=== PATIENT | male | born 1985 | race Caucasian/White ===

== ENCOUNTER 2016-11-08 07:19 | Emergency (ER) ==
[2016-11-08] MEDS ORDERED: TORADOL IV ONE (07:39)
[2016-11-08] MEDS ORDERED: ZOFRAN IV ONE (07:39)
[2016-11-08] MEDS ORDERED: NS 1,000 ML IV ONE (07:39)
--- NOTE | 2016-11-08 08:15 | PROVIDER DOCUMENTATION ---
HPI-Abdominal Pain/GI Problem <Patrick Rock - Last Filed: 11/08/16 09:12> - General Source: patient - History of Present Illness-ABD Nature of Presenting Problems: Sudden onset R flank pain radiating to R testicle area since 1 hour ago [employer]. Reports h/o multiple stones in the past and he needed surgeries to remove them. Urologist is Dr. Roberto at [facility]. Denies F/C/V, but nauseated. Pt reports his R testicle is hurting, but it is radiating pain and he always has it when he passes a kidney stone. Abdominal Pain Onset Location: reports: flank (R) Pain Radiation: reports: groin (R) Quality of Pain: reports: aching, sharp Severity in ED: reports: moderate Onset/Duration: reports: abrupt, just prior to arrival Timing: reports: still present Activities at Onset: reports: none Exposure to sick contacts?: No Associated Symptoms: reports: nausea Dark Stools Present?: reports: none noticed Rectal Pain: reports: none Bruising or Bleeding Gums?: No Similar Symptoms Previously?: No <Mark Johnson - Last Filed: 11/08/16 15:33> - General Chief Complaint: Flank Pain Stated Complaint: kidney stone Time Seen by Provider: 11/08/16 07:38 Allergies/Adverse Reactions: Patient Allergies Allergy/AdvReac Type Severity Reaction Status Date / Time prochlorperazine Allergy Unknown Verified 11/08/16 08:42 [From Compazine] prochlorperazine edisylate * Allergy Unknown Verified 11/08/16 08:42 [From Compazine] prochlorperazine maleate * Allergy Unknown Verified 11/08/16 08:42 [From Compazine] Home Medications: Home Medication List Medication Instructions Recorded Confirmed Last Taken Type Ciprofloxacin HCl [Cipro] 500 mg PO BID #20 tablet 11/08/16 Unknown Rx Hydrocodone/APAP 10 mg/325 mg 1 each PO Q8H PRN PRN #15 tablet 11/08/16 Unknown Rx [[place]-10] Ondansetron Odt [Zofran 8Mg Odt] 8 mg PO Q8H PRN PRN #10 tablet 11/08/16 Unknown Rx Tamsulosin [Flomax] 0.4 mg PO DAILY #30 capsule 11/08/16 Unknown Rx Review of Systems - Adult - REVIEW OF SYSTEMS - ADULT ROS:: unobtainable per condition Constitutional: reports: no symptoms reported, see HPI Eyes: denies: no symptoms reported Ears, Nose, Mouth & Throat: reports: no symptoms reported Cardiovascular: reports: no symptoms reported Respiratory: reports: no symptoms reported Gastrointestinal: reports: see HPI, abdominal pain, nausea. denies: vomiting Genitourinary: reports: no symptoms reported, see HPI, flank pain. denies: dysuria, discharge, hematuria, hesitency, urinary retention, urgency Musculoskeletal: reports: no symptoms reported Integumentary: reports: no symptoms reported Neurological: reports: no symptoms reported Endocrine: reports: no symptoms reported All Other Systems: Reviewed and Negative <Mark Johnson X - Last Filed: 11/08/16 15:33> Past History - Adult - PAST MEDICAL HISTORY-ADULT Review of Records: reports: Old Records Reviewed, Nursing Assessment Review, Medications Reviewed, Social history reviewed & non-contributory. <Mark Johnson X - Last Filed: 11/08/16 15:33> Physical Exam-General - PHYSICAL EXAM-ADULT Initial Vital Signs Reviewed: Yes - CONSTITUTIONAL General Appearance: appears well, alert, no apparent distress - EYES Eyes: PERRL/EOMI, pink conjunctivae - HEAD, EARS, NOSE, MOUTH & THROAT HENMT: normocephalic/atraumatic, moist mucous membranes - NECK Neck: non-tender, full range of motion - RESPIRATORY Respiratory: chest non-tender, lungs clear, normal breath sounds - CARDIOVASCULAR Cardiovascular: normal peripheral pulses, regular rate, rhythm, no edema - GASTROINTESTINAL (ABDOMEN) Abdominal Exam: normal bowel sounds, soft, no organomegaly, tenderness (R flank tenderness, no guarding and no rebound.). negative: rebound - GENITOURINARY Male Genitalia: no hernia, circumcised. negative: hernia mass, inguinal lymphadenopathy, scrotal swelling, inguinal tenderness, testicular tenderness - MUSCULOSKELETAL Back Exam: normal inspection, no CVA tenderness, no vertebral tenderness, CVA tenderness (On R side) Extremity: normal range of motion - SKIN Integumentary: normal color, normal turgor, warm/dry - PSYCHIATRIC Psych/Mental Status: normal mood/affect, normal thought content, normal thought process, oriented x 3 <Mark Johnson X - Last Filed: 11/08/16 15:33> Progress - PLAN OF CARE/RESULTS Progress/Plan/Lab Results: Orders Category Date Time Status Saline Loc DIRECTED Care 11/08/16 07:39 Active NPO Diet 11/08/16 07:39 Active RENAL STONE SEARCH [CT] Stat Exams 11/08/16 07:39 Draft AMYLASE [CHEM] Stat Lab 11/08/16 07:52 Completed CBC WITH ELECTRONIC DIFF [HEME] Stat Lab 11/08/16 07:52 Completed COMPREHENSIVE METABOLIC PANEL [CHEM] Stat Lab 11/08/16 07:52 Completed LIPASE [CHEM] Stat Lab 11/08/16 07:52 Completed URINALYSIS W/POSS RFLX CULT [URINALYSIS] Stat Lab 11/08/16 08:50 Completed 0.9% Sodium Chloride Inj [Ns] 1,000 ml Med 11/08/16 07:39 Discontinued IV 999 mls/hr Ketorolac [Toradol] Med 11/08/16 07:39 Discontinued 30 mg IV NOW ONE Ondansetron [Zofran] Med 11/08/16 07:39 Discontinued 4 mg IV NOW ONE Laboratory Tests 11/08/16 11/08/16 11/08/16 07:52 07:52 08:50 WBC 7.30 RBC 5.07 Hgb 15.5 Hct 44.5 MCV 87.8 MCH 30.6 MCHC 34.8 RDW Std Deviation 12.9 Plt Count 253 MPV 10.2 Immature Gran % (Auto) 0.7 H Neut % (Auto) 64.4 Lymph % (Auto) 23.7 [place] % (Auto) 9.0 Eos % (Auto) 1.9 Baso % (Auto) 0.3 Immature Gran # (Auto) 0.05 H Neut # (Auto) 4.70 Lymph # (Auto) 1.73 [place] # (Auto) 0.66 H Eos # (Auto) 0.14 Baso # (Auto) 0.02 Sodium 140 Potassium 4.1 Chloride 103 Carbon Dioxide 24 L Anion Gap 13 BUN 15 Creatinine 1.0 Estimated GFR/1.73 m2 > 60 BUN/Creatinine Ratio 15 Glucose 98 Calculated Osmolality 280 Calcium 9.3 Total Bilirubin 0.53 AST 25 ALT 37 Alkaline Phosphatase 56 Total Protein 6.9 Albumin 4.3 Globulin 2.6 Albumin/Globulin Ratio 1.7 Amylase 72 Lipase 23 Urine Source CLEAN CATCH Urine Color YELLOW Urine Turbidity CLEAR Urine pH 6.0 Ur Specific [place] 1.015 Urine Protein NEGATIVE Ur Glucose (Stick) NEGATIVE Ur Ketones (Stick) NEGATIVE Urine Blood LARGE A Urine Nitrite NEGATIVE Urine Bilirubin NEGATIVE Urobilinogen Dipstick NORMAL Urine Leukocytes NEGATIVE Urine WBC (Auto) <10 Urine RBC (Auto) TNTC A U Epithel Cells (Auto) <10 Urine Bacteria (Auto) NEGATIVE Vital Signs - 24 hr 11/08/16 07:21 Temperature 98.6 F Pulse Rate 84 Respiratory 18 Rate Blood Pressure 189/95 O2 Sat by Pulse 100 Oximetry - CT/MRI 1 CT Study: Renal Stone Impression: Abnormal (right nephrolithiasis and obstructing ureteroplevic stone 5mm. Hepatic steatosis.(per radiologist)) <Patrick Rock - Last Filed: 11/08/16 09:12> Departure - Departure Time of Disposition Order: 09:12 Certified Medical Emergency: Emergent <PranavPatrick - Last Filed: 11/08/16 09:12> - Departure Certified Medical Emergency: Emergent <AlexMark Marshall - Last Filed: 11/08/16 15:33> - Departure DIAGNOSIS: Ureteral stone Disposition: HOME 01 Condition: Stable Additional Instructions: Follow up with Dr Lehman (previously seen urologist) ED Follow Up Instructions: You have been treated by a care provider in the Emergency Department. These instructions are being provided to you so you can have an understanding of how to care for yourself upon discharge. Upon discharge from the Emergency Department, you are responsible for making arrangements for follow-up care by a physician of your choice. Take all prescribed medications as directed. Return to the Emergency Department immediately for any new or worsening symptoms. You may call the Physician Referral phone number at [phone] to obtain a list of Physicians who are taking new patients. Prescriptions: Ciprofloxacin HCl [Cipro] 500 mg PO BID #20 tablet Tamsulosin [Flomax] 0.4 mg PO DAILY #30 capsule Hydrocodone/APAP 10 mg/325 mg [[place]-10] 1 each PO Q8H PRN PRN #15 tablet PRN Reason: Pain Ondansetron Odt [Zofran 8Mg Odt] 8 mg PO Q8H PRN PRN #10 tablet PRN Reason: Nausea And Vomiting Referrals: Mitchell Lemos [Primary Care Provider] - Forms: Return to School/Parent Work Instructions: Kidney Stones Attestation - Scribe Verification/Attestation Scribe:: Patrick Rock Acting as Scribe for:: Mark Johnson Scribe documention review:: This chart was documented by a scribe and accurately reflects the service the provider performed and the decisions made by the provider. <Patrick Rock - Last Filed: 11/08/16 09:12> Physician Attestation
[2016-11-08 08:44] LABS: MANUAL DIFF NEEDED? NO
[2016-11-08 08:47] LABS: BASO% 0.3 % (0.0-0.8); EOS# 0.14 X1000 (0.0-0.7); EOS% 1.9 % (0.0-10.0); HEMATOCRIT 44.5 % (42.0-52.0); HEMOGLOBIN 15.5 g/dL (14.0-18.0); IMM GRAN# 0.05 X1000 (0.0-0.04); IMM GRAN% 0.7 % (0.0-0.5); LYMPH# 1.73 X1000 (1.2-3.4); LYMPH% 23.7 % (20.5-51.1); MCH 30.6 PG (27-31); MCHC 34.8 g/dL (33-37); MCV 87.8 FL (81-99); MONO# 0.66 X1000 (0.11-0.59); MPV 10.2 FL (7.4-10.4); NEUT% 64.4 % (42.2-75.2); PLT 253 X1000 (130-400); RBC 5.07 XMIL (4.7-6.1)
--- NOTE | 2016-11-08 08:58 | Diag Imaging Result Document ---
PROCEDURE NAME: RENAL STONE SEARCH - 11/08/2016 CT UROGRAM WITHOUT CONTRAST: FINDINGS: There is some atelectasis or fibrosis in the left lower lobe. There are no previous studies. The liver is hypodense in appearance suggesting fatty change. The gallbladder is apparently without calcified stones. There is fullness of the collecting system on the right with multiple small calyceal stones. There may be mild medullary nephrocalcinosis on the left side, but there is no evidence of left hydronephrosis. There is a 5 mm stone in the right ureteropelvic junction. There are no bladder stones and no evidence of other ureteral stones is present. The appendix is normal in appearance. There is no evidence of bowel obstruction or significant adenopathy and no abnormal fluid collections are otherwise present. There are several splenules near the spleen. IMPRESSION: Right nephrolithiasis and obstructing ureteropelvic stone. Hepatic steatosis.
[2016-11-08 09:02] LABS: URINE CULTURE NEEDED? NO; URINE MICRO REVIEW NEEDED? NO; URINE SOURCE CLEAN CATCH
[2016-11-08 09:04] LABS: AGAP 13; ALBUMIN 4.3 g/dL (3.5-5.0); ALKALINE PHOSPHATASE 56 U/L (32-122); AMYLASE 72 U/L (20-200); BUN 15 mg/dL (8-22); CALCIUM 9.3 mg/dL (8.8-10.2); CHLORIDE 103 mmol/L (98-107); COSMO 280; GOT 25 U/L (10-34); GPT 37 U/L (10-44); LIPASE 23 U/L (13-60); POTASSIUM 4.1 mmol/L (3.5-5.1); SODIUM 140 mmol/L (136-145); TCO2 24 mmol/L (25-35); TOTAL BILIRUBIN 0.53 mg/dL (0.20-1.00); TOTAL PROTEIN 6.9 g/dL (6.3-8.3)
[2016-11-08 09:06] LABS: BILIRUBIN URINE NEGATIVE (NEGATIVE); BLOOD URINE LARGE (NEGATIVE); COLOR YELLOW; GLUCOSE URINE NEGATIVE (NEGATIVE); LEUKOCYTES URINE NEGATIVE (NEGATIVE); NITRITE URINE NEGATIVE (NEGATIVE); PROTEIN URINE NEGATIVE (NEGATIVE); SP GRAVITY URINE 1.015; TURBIDITY URINE CLEAR (CLEAR); UR EPITHELIAL CELLS <10 /HPF (<10); URINE BACTERIA NEGATIVE /HPF; URINE RBC TNTC /HPF (<10); URINE WBC <10 /HPF (<10); UROBILINOGEN URINE NORMAL (NORMAL)
[2016-11-08] MEDS ORDERED: DILAUDID IV ONE (11:40)
[2016-11-08 12:10] VITALS: BP 117/67
== END 2016-11-08 12:34 | disposition home or self-care (01) ==
LOC: ED 07:19
DX: N20.1 Calculus of ureter (principal); N20.0 Calculus of kidney; K76.0 Fatty (change of) liver, not elsewhere classified; R10.9 Unspecified abdominal pain; N50.811 Right testicular pain; R11.0 Nausea; R10.31 Right lower quadrant pain; R10.819 Abdominal tenderness, unspecified site; Z87.442 Personal history of urinary calculi
CPT/HCPCS: 74176; 80053; 81001; 82150; 83690; 85025; J1170; J1885; J2405; J7030